=== PATIENT | male | born 1975 | race Caucasian/White ===

== ENCOUNTER → 2018-02-13 09:32 | Outpatient (CLI) | payer OTHER, SELFPAY ==
--- NOTE | 2018-02-13 10:11 | XR_ITS ---
EXAM: XR lumbar spine min 4V HISTORY: Right-sided low back pain ITS.REASON: Low back pain with right sciatica ORDERING PHYSICIAN: JONI Morrissey PATIENT AGE: 42 years COMPARISON: None FINDINGS: Normal alignment. No fracture or dislocation. No lytic or blastic change. There is mild degenerative disc disease at L5-S1 with minimal endplate osteophytes. IMPRESSION: Mild degenerative disc disease L5-S1
== END ==
PROVIDERS: PCP Physician Assistant; Visit Provider Physician Assistant
DX: M54.41 Lumbago with sciatica, right side (principal)
CPT/HCPCS: 72110

== ENCOUNTER → 2018-10-24 19:41 | Outpatient (CLI) | payer OTHER, SELFPAY ==
[2018-10-26 15:07] LABS: Hep A Ab, IgM Negative (Negative)
== END ==
PROVIDERS: Visit Provider Physician Assistant
DX: R19.7 Diarrhea, unspecified (principal); R10.13 Epigastric pain; K21.9 Gastro-esophageal reflux disease without esophagitis; Z20.5 Contact with and (suspected) exposure to viral hepatitis
CPT/HCPCS: 86708

== ENCOUNTER → 2018-11-14 09:31 | Outpatient (CLI) | payer OTHER, SELFPAY ==
--- NOTE | 2018-11-14 09:33 | CT_ITS ---
CT abdomen pelvis w con CLINICAL HISTORY: Epigastric pain TECHNIQUE: Axial images obtained with sagittal and coronal reformats. All CT scans at the facility use one or more dose reduction, viz: automated exposure control, ma/kV adjustment per patient size (including targeted exams where dose is matched to indication, i.e. head), or iterative reconstruction technique. COMPARISON: None PROCEDURE: Oral Contrast: Was given IV Contrast: 75 ml IV Isovue 370 was injected intravenously. FINDINGS: Lung bases: Clear, there is no pleural fluid ABDOMEN: Liver: No masses or biliary dilatation. There is an 8 mm hypodense lesion posterior aspect of the right lobe of the liver near the dome and a similar appearing 8 mm hypoechoic lesion inferior aspect of the right lobe both likely representing hepatic cysts. Gallbladder: Nondistended. No radio opaque stones. Pancreas: No masses or peripancreatic fluid collections. Spleen: Unremarkable. Adrenals: Unremarkable Kidneys/ureters: No masses. No renal calculi. No hydronephrosis. No perinephric fluid collections. No ureteral dilatation or obvious ureteral calculi. The kidneys show symmetrical function following injection of contrast. Stomach bowel: Nondistended. No obvious mass or thickening. There is a small sliding hiatal hernia noted. Small bowel appears normal. The appendix is well-visualized and is normal caliber and partially air-filled. There are scattered stool and gas seen throughout the colon with mild prediverticular changes of the sigmoid colon with accentuated haustral folds. Peritoneum: No abnormal fluid collections. No obvious inflammatory changes. Lymph nodes: No enlarged lymph nodes apparent. Vasculature: No evidence of abdominal aortic aneurysm. No retroperitoneal hemorrhage evident. Bones: Unremarkable appearing bony structures. No lytic or blastic changes. No obvious fractures. PELVIS: Reproductive: Unremarkable, the prostate is normal in size Bladder: Moderately distended, no obvious masses Appendix: Normal IMPRESSION: 1. Mild pre-diverticular changes of sigmoid colon with no evidence of diverticulitis 2. 2 tiny liver lesions of decreased attenuation consistent with hepatic cysts
== END ==
PROVIDERS: PCP Physician Assistant; Visit Provider Surgery
DX: R10.13 Epigastric pain (principal)
CPT/HCPCS: 74177; Q9967

== ENCOUNTER → 2019-02-04 11:36 | Outpatient (CLI) | payer OTHER, SELFPAY ==
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
== END ==
PROVIDERS: PCP Physician Assistant; Visit Provider Physician Assistant
DX: M25.562 Pain in left knee (principal); M79.645 Pain in left finger(s); M79.605 Pain in left leg
CPT/HCPCS: 73130; 73552; 73564

== ENCOUNTER → 2019-02-14 13:21 | Outpatient (CLI) | payer OTHER, SELFPAY ==
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
== END ==
PROVIDERS: PCP Physician Assistant; Visit Provider Physician Assistant
DX: M25.562 Pain in left knee (principal)
CPT/HCPCS: 73721

== ENCOUNTER 2019-02-22 14:20 | Outpatient (RCR) | payer OTHER, SELFPAY | END 2019-02-22 14:30 | disposition home or self-care (01) | LOC: PT 14:20 | PROVIDERS: Visit Provider Orthopaedic Surgery | DX: S83.512A Sprain of anterior cruciate ligament of left knee, initial encounter (principal); S83.422A Sprain of lateral collateral ligament of left knee, initial encounter; S82.142A Displaced bicondylar fracture of left tibia, initial encounter for closed fracture | CPT/HCPCS: 97760 ==

== ENCOUNTER → 2019-03-22 09:36 | Outpatient (CLI) | payer OTHER, SELFPAY ==
--- NOTE | 2019-03-22 09:37 | MR_ITS ---
MR shoulder LT wo con HISTORY:Left shoulder pain with limited range of motion ITS.REASON: Left shoulder pain ORDERING PHYSICIAN: JONI Miles PATIENT AGE: 43 years Comparison: None TECHNIQUE: Standard multiplanar multiecho sequences are performed without contrast. FINDINGS: There is mild hypertrophic change along the inferior aspect of the acromion with mild subacromial stenosis. No evidence of supraspinatus or infraspinatus tendon tear. There is acromioclavicular arthropathy with mild impingement upon the musculotendinous junction of the supraspinatus. Mild tendinopathy/tendinosis of the supraspinatus tendon. The teres minor tendon has an unremarkable appearance. There is complete tear of the subscapularis tendon with retraction of the musculotendinous fibers. There is dislocation of the bicipital tendon to the long head of the biceps. The tendon dislocated medially. No obvious labral tear. There is some bone marrow edema involving the posterior aspect of the humeral head consistent with an area of contusion.. IMPRESSION: 1. Complete tear of the subscapularis tendon with retraction of the musculotendinous fibers 2. Medial dislocation of the long head of the biceps tendon. 3. Bone contusion at the humeral head 4. Tendinopathy/tendinosis of the supraspinatus tendon with acromioclavicular arthropathy and subacromial stenosis
--- NOTE | 2019-03-22 10:48 | CT_ITS ---
CT hand LT wo con INDICATION: ITS.REASON: Left thumb pain ORDERING PHYSICIAN: JONI Miles PATIENT AGE: 43 years COMPARISON: None TECHNIQUE: Axial images are obtained without contrast. Sagittal and coronal reformatted images are reviewed as well. All CT scans at the facility use one or more dose reduction, viz: automated exposure control, ma/kV adjustment per patient size (including targeted exams where dose is matched to indication, i.e. head), or iterative reconstruction technique. FINDINGS: There is a peripheral area of calcification chest superficial to the cortex at the dorsal, distal, and ulnar aspect of the first metacarpal. This could be related to an avulsion injury is age indeterminate. Has the patient had recent or remote trauma to this region? No bony destructive process. No soft tissue mass evident. No other significant anomalies are evident.. This cortical calcification is not readily apparent on the older radiograph of 02/04/2019 and is present on the recent exam of 03/22/2019. IMPRESSION: Peripheral cortical calcification at the distal aspect of the first metacarpal which may be related to posttraumatic changes/avulsion fracture. Please correlate with clinical findings. Follow-up radiograph suggested to confirm healing and exclude the possibility that this may represent an area of periosteal reaction from other causes
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
--- NOTE | 2019-03-22 14:13 | XR_ITS ---
XR knee LT 3V HISTORY: Pain and swelling ITS.REASON: ap, lateral, oblique weight bearing ORDERING PHYSICIAN: JONI Miles PATIENT AGE: 43 years COMPARISON: None FINDINGS: No fracture or dislocation. No lytic or blastic change. Normal mineralization. No significant arthritic changes evident. Previous MRI showed a suspected lateral tibial plateau fracture which is below limits of resolution on this radiograph. There is some minimal curvilinear sclerotic density along the medial aspect of the lateral tibial plateau which could represent some sclerosis at the fracture site. No other significant findings IMPRESSION: As above, no acute finding. Possible healing lateral tibial plateau fracture
== END ==
PROVIDERS: PCP Physician Assistant; Visit Provider Physician Assistant
DX: M25.512 Pain in left shoulder (principal); M79.642 Pain in left hand; M25.562 Pain in left knee; V89.2XXA Person injured in unspecified motor-vehicle accident, traffic, initial encounter
CPT/HCPCS: 73130; 73200; 73221; 73562

== ENCOUNTER 2019-03-29 15:00 | Outpatient (RCR) | payer OTHER, SELFPAY ==
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
== END 2019-03-29 15:05 | disposition home or self-care (01) ==
LOC: PT 15:00
PROVIDERS: Visit Provider Orthopaedic Surgery
DX: S83.512A Sprain of anterior cruciate ligament of left knee, initial encounter (principal); S83.429A Sprain of lateral collateral ligament of unspecified knee, initial encounter; S82.142A Displaced bicondylar fracture of left tibia, initial encounter for closed fracture
CPT/HCPCS: 97110; 97163

== ENCOUNTER → 2019-07-15 14:47 | Outpatient (CLI) | payer OTHER, SELFPAY ==
--- NOTE | 2019-07-15 15:05 | ECG_ITS ---
APPROVED REPORT Exam: Resting ECG HR:73 bpm ECG Measurements Heart Rate 73 AXES AR 182 P 36 QRSd 90 QRS 34 QT 370 T -14 QTc 407 <Conclusion> Normal sinus rhythm Normal ECG Electronically signed by : Lukas Rajput, 07/16/2019 17:31:20
[2019-07-15 15:18] LABS: Basophils % 0.5 % (0.1-2.0); Eosinophils # 0.1 K/mm3 (0.0-0.4); Eosinophils % 2.1 % (0.1-12.0); Hematocrit 45.4 % (42.0-52.0); Lymphocytes # 2.1 K/mm3 (0.7-4.5); Mean Corpuscular HGB Conc 35.2 g/dL (31.8-35.4); Mean Corpuscular Hemoglobin 31.2 pg (27.0-31.2); Mean Corpuscular Volume 88.6 fl (80-94); Mean Platelet Volume 7.4 fl (7.4-10.4); Monocytes # 0.3 K/mm3 (0.1-1.0); Monocytes % 5.3 % (1.7-9.3); Neutrophils # 3.6 K/mm3 (1.8-7.8); Neutrophils % 58.2 % (37.0-80.0); Platelet Count 208 K/mm3 (142-424); Red Blood Count 5.13 M/mm3 (4.60-6.20); Red Cell Distribution Width 13.2 % (11.5-17.5); White Blood Count 6.1 K/mm3 (4.8-10.8)
[2019-07-15 17:13] LABS: Anion Gap 13.1 mEq/L (5-15); Blood Urea Nitrogen 15 mg/dL (7-18); Calcium 9.3 mg/dL (8.5-10.1); Carbon Dioxide 28 mmol/L (21.0-32.0); Chloride 103 mmol/L (98-107); Creatinine,Serum 1.19 mg/dL (0.70-1.30); Estimated Glomerular Filt Rate 67 ml/min (>60); GFR (African American) 81 ML/MIN (>60); Glucose 113 mg/dL (74-106); Potassium 4.1 mmoL/L (3.5-5.1); Sodium 140 mmol/L (136-145)
== END ==
PROVIDERS: Visit Provider Otolaryngology
DX: Z01.818 Encounter for other preprocedural examination (principal); J34.2 Deviated nasal septum
CPT/HCPCS: 36415; 80048; 85025; 93005

== ENCOUNTER → 2019-08-29 11:51 | Outpatient (CLI) | payer OTHER, SELFPAY | PROVIDERS: PCP Physician Assistant; Visit Provider Physician Assistant | DX: G47.33 Obstructive sleep apnea (adult) (pediatric) (principal); I10 Essential (primary) hypertension; R06.83 Snoring | CPT/HCPCS: 95806 ==

== ENCOUNTER → 2020-09-17 10:05 | Outpatient (CLI) | payer OTHER, SELFPAY ==
--- NOTE | 2020-09-17 10:09 | XR_ITS ---
PROCEDURE: XR CHEST 2V CLINICAL HISTORY: weight loss, former smoker COMPARISON: CR CXR2 XR chest AP from 02/01/2019 FINDINGS: The cardiomediastinal silhouette and pulmonary vascularity are within normal limits. The lungs are clear without infiltrates, suspicious nodules, or pleural effusions. No acute bony abnormalities. IMPRESSION: No acute findings. Dictated by: Fransisco Pettit MD 09/17/2020 13:34 Fransisco Pettit MD in [place] 09/17/2020 13:34
[2020-09-17 17:22] LABS: Basophils % 0.7 % (0.1-2.0); Eosinophils # 0.2 K/mm3 (0.0-0.4); Eosinophils % 3.9 % (0.1-12.0); Hemoglobin 17.9 g/dL (14.1-18.0); Lymphocytes # 1.8 K/mm3 (0.7-4.5); Lymphocytes % 31.4 % (10-50); Mean Corpuscular HGB Conc 36.5 g/dL (31.8-35.4); Mean Corpuscular Hemoglobin 33.7 pg (27.0-31.2); Mean Corpuscular Volume 92.2 fl (80-94); Mean Platelet Volume 8.5 fl (7.4-10.4); Monocytes # 0.3 K/mm3 (0.1-1.0); Monocytes % 5.6 % (1.7-9.3); Neutrophils # 3.3 K/mm3 (1.8-7.8); Neutrophils % 58.3 % (37.0-80.0); Platelet Count 206 K/mm3 (142-424); Red Blood Count 5.31 M/mm3 (4.60-6.20); Red Cell Distribution Width 13.2 % (11.5-17.5); White Blood Count 5.7 K/mm3 (4.8-10.8)
[2020-09-17 17:31] LABS: Alanine Aminotransferase 41 U/L (12-78); Albumin Level 4.4 g/dl (3.5-5.0); Albumin/Globulin Ratio 1.3 (1.1-1.8); Alkaline Phosphatase 83 U/L (38-126); Anion Gap 13.7 mEq/L (5-15); Aspartate Amino Transferase 44 U/L (17-59); Bilirubin,Total 0.7 mg/dl (0.2-1.3); Blood Urea Nitrogen 14 mg/dl (9-20); Calcium 9.2 mg/dl (8.4-10.2); Carbon Dioxide 23 mmol/L (22.0-30.0); Chloride 108 mmol/L (98-107); Chol/HDL Ratio 6.4 (1-3.5); Cholesterol 224 mg/dl (140-200); Estimated Glomerular Filt Rate 82 ml/min (>60); GFR (African American) 99 ML/MIN (>60); Globulin 3.5 g/dL (1.3-3.2); Glucose 111 mg/dl (74-100); HDL Cholesterol 35 mg/dl (40-60); Potassium 4.7 mmoL/L (3.5-5.1); Sodium 140 mmol/L (136-145); Total Protein,Serum 7.9 g/dl (6.3-8.2)
[2020-09-17 17:43] LABS: Triglycerides > 1575 mg/dl (30-150)
[2020-09-17 17:44] LABS: Hemoglobin A1C 5.1 % (4.0-6.0)
[2020-09-17 17:48] LABS: T4 (Thyroxine) 5.8 ug/dl (5.53-11.0)
[2020-09-17 17:49] LABS: 25-OH Vitamin D, Total 32.4 ng/mL (30-100)
[2020-09-17 18:02] LABS: Thyroid Stimulating Hormone 1.79 uIU/mL (0.465-4.68)
== END ==
PROVIDERS: PCP Physician Assistant; Visit Provider Physician Assistant
DX: R73.9 Hyperglycemia, unspecified (principal); R63.4 Abnormal weight loss; Z79.899 Other long term (current) drug therapy
CPT/HCPCS: 71046; 80053; 80061; 82306; 83036; 84436; 84443; 85025

== ENCOUNTER → 2020-12-21 18:01 | Outpatient (CLI) | payer OTHER, SELFPAY ==
[2020-12-21 21:22] LABS: Chol/HDL Ratio 4.6 (1-3.5); Cholesterol 215 mg/dl (140-200); HDL Cholesterol 47 mg/dl (40-60); Triglycerides 136 mg/dl (30-150); VLDL Cholesterol 27 mg/dL (0-40)
[2020-12-21 21:33] LABS: Direct LDL Cholesterol 147.43 mg/dL (100-129)
== END ==
PROVIDERS: Visit Provider Physician Assistant
DX: E78.1 Pure hyperglyceridemia (principal)
CPT/HCPCS: 80061

== ENCOUNTER → 2021-03-22 13:54 | Outpatient (CLI) | payer OTHER, SELFPAY ==
[2021-03-22 16:02] LABS: Chol/HDL Ratio 4.3 (1-3.5); Cholesterol 210 mg/dl (140-200); HDL Cholesterol 49 mg/dl (40-60); Triglycerides 160 mg/dl (30-150); VLDL Cholesterol 32 mg/dL (0-40)
[2021-03-22 16:12] LABS: Direct LDL Cholesterol 127.58 mg/dL (100-129)
== END ==
PROVIDERS: Visit Provider Physician Assistant
DX: E78.2 Mixed hyperlipidemia (principal)
CPT/HCPCS: 80061

== ENCOUNTER → 2021-06-17 11:18 | Outpatient (CLI) | payer OTHER, SELFPAY ==
--- NOTE | 2021-06-17 11:23 | XR_ITS ---
PROCEDURE: XR FOOT WT BEARING RT 3V CLINICAL INDICATION: R Foot Pain COMPARISON: No exams were available for comparison FINDINGS: No fracture or dislocation. No lytic or blastic change. There is normal mineralization. The joint spaces are well-preserved. No significant degenerative/arthritic changes. No erosive changes evident. Other findings:There is mild spurring along the anterior distal tibia and there is a small osteophyte at the talar neck anteriorly IMPRESSION: Degenerative changes at the ankle otherwise negative Dictated by: Fransisco Pettit MD 06/17/2021 12:59 Fransisco Ptetit MD in [facility] 06/17/2021 12:59
== END ==
PROVIDERS: PCP Physician Assistant; Visit Provider Physician Assistant
DX: M79.671 Pain in right foot (principal)
CPT/HCPCS: 73630

== ENCOUNTER → 2021-08-04 08:53 | Outpatient (CLI) | payer OTHER, SELFPAY ==
--- NOTE | 2021-08-04 08:55 | XR_ITS ---
PROCEDURE: XR FOOT WT BEARING LT 3V CLINICAL INDICATION: pain COMPARISON: CR XR FOOT WT BEARING RT 3V from 06/17/2021 FINDINGS: No fracture or dislocation. No lytic or blastic change. There is normal mineralization. The joint spaces are well-preserved. No significant degenerative/arthritic changes. No erosive changes evident. Other findings:None. IMPRESSION: No acute findings. Dictated by: Fransisco Pettit MD 08/04/2021 09:31 Fransisco Pettit MD in [facility] 08/04/2021 09:31
--- NOTE | 2021-08-04 08:55 | XR_ITS ---
PROCEDURE: XR FOOT WT BEARING RT 3V CLINICAL INDICATION: pain COMPARISON: CR XR FOOT WT BEARING RT 3V from 06/17/2021 FINDINGS: No fracture or dislocation. No lytic or blastic change. There is normal mineralization. There are mild hypertrophic changes along the anterior distal tibia Other findings:None. IMPRESSION: No acute findings. Dictated by: Fransisco Pettit MD 08/04/2021 09:43 Fransisco Pettit MD in [facility] 08/04/2021 09:43
== END ==
PROVIDERS: PCP Physician Assistant; Visit Provider Nurse Practitioner
DX: M72.2 Plantar fascial fibromatosis (principal); M79.672 Pain in left foot; M79.671 Pain in right foot
CPT/HCPCS: 73630

== ENCOUNTER → 2021-12-13 15:19 | Outpatient (CLI) | payer OTHER, SELFPAY | PROVIDERS: Visit Provider Nurse Practitioner | DX: Z20.822 Contact with and (suspected) exposure to COVID-19 (principal) | CPT/HCPCS: C9803; U0003; U0005 ==

== ENCOUNTER → 2022-12-21 14:39 | Outpatient (CLI) | payer OTHER, SELFPAY ==
--- NOTE | 2022-12-21 14:39 | MR_ITS ---
FINAL REPORT CLINICAL HISTORY: left shoulder pain left shoulder pain after 2nd surgery in 2019 to shoulder limited rom COMPARISON: 03/22/2019 FINDINGS: Multiplanar MR imaging of the shoulder was performed without contrast. There is a partial thickness articular surface tear of the infraspinatus tendon involving greater than 50%. There is mild AC joint arthrosis. A small amount of fluid is seen in the subacromial/subdeltoid bursa. There are interval postoperative changes at the anterior humeral head. There is thinning of the subscapularis tendon without evidence of full-thickness tear. The glenoid labrum is intact. The proximal long head of the biceps tendon is not seen, may be postoperative. Small glenohumeral joint effusion is seen. There is no evidence of fracture or dislocation. The musculature is intact. There is no evidence of soft tissue mass. IMPRESSION: Partial thickness articular surface tear of the infraspinatus tendon. Postoperative changes as detailed above. Reviewed, Interpreted and Dictated by Washington Deluna III, MD Transcribed by Nolvia Magana Authenticated and [facility]
== END ==
PROVIDERS: PCP Physician Assistant; Visit Provider Physician Assistant
DX: M25.512 Pain in left shoulder (principal)
CPT/HCPCS: 73221

== ENCOUNTER 2023-12-08 10:23 | Outpatient (CLI) | payer OTHER, SELFPAY ==
--- NOTE | 2023-12-08 10:24 | XR_ITS ---
FINAL REPORT CLINICAL HISTORY: right wrist pain COMPARISON: 03/22/2019 FINDINGS: RIGHT WRIST Three views demonstrate no acute fracture or dislocation. The visualized joint spaces are normally aligned. The soft tissues are unremarkable. IMPRESSION: No acute bony abnormality. Reviewed, Interpreted and Dictated by Washington Deluna III, MD Transcribed by Mildred Lara Authenticated and . [facility]
--- NOTE | 2023-12-08 10:24 | XR_ITS ---
FINAL REPORT CLINICAL HISTORY: left wrist pain COMPARISON: 03/22/2019 FINDINGS: LEFT WRIST Three views demonstrate no acute fracture or dislocation. There is mild degenerative change. The soft tissues are unremarkable. IMPRESSION: Mild degenerative change without acute bony abnormality. Reviewed, Interpreted and Dictated by Washington Deluna III, MD Transcribed by Mildred Lara Authenticated and [facility]
== END 2023-12-08 23:59 ==
LOC: RAD 10:24
PROVIDERS: PCP Physician Assistant; Visit Provider Orthopaedic Surgery
DX: M25.531 Pain in right wrist (principal); M25.532 Pain in left wrist
CPT/HCPCS: 73110